=== PATIENT | female | born 1985 | race Caucasian/White ===

== ENCOUNTER 2016-10-24 06:58 | Inpatient (IN) | payer OTHER ==
[2016-10-25] MEDS ORDERED: IV START KIT ONE (07:33)
[2016-10-25] MEDS ORDERED: SODIUM CHLORIDE 0.9% FLUSH 20 ML ONE (07:34)
[2016-10-25] MEDS ORDERED: OXYTOCIN 10 UNITS/ML VIAL ONE (07:34)
[2016-10-25] MEDS ORDERED: LIDOCAINE 1% (PRES FREE) 30 ML VIAL ONE (07:34)
[2016-10-25] MEDS ORDERED: LACTATED RINGERS 1,000 ML ONE (07:34)
[2016-10-25] MEDS ORDERED: MINERAL OIL 25 ML BOT ONE (07:34)
[2016-10-25] MEDS ORDERED: LIDOCAINE Viscous 2% 15 ML UDCUP ONE (07:35)
[2016-10-25] MEDS ORDERED: OXYTOCIN IN LR 500 ML IV ONE ×2 (07:35→08:58)
[2016-10-25] MEDS ORDERED: PUMP TUBING ONE (07:35)
[2016-10-25 08:08] VITALS: BMI 39.0
[2016-10-25] MEDS ORDERED: MISOPROSTOL 25 MCG TABLET ONE (08:53)
[2016-10-25 09:18] LABS: HEMATOCRIT 34.8 % (37.0-47.0); HEMOGLOBIN 11.3 gm/l (12.0-16.0); MEAN CELL VOLUME 80.7 fl (81.0-99.0); MEAN CORPUSCULAR HEMOGLOBIN 26.2 pg (27.0-31.0); MEAN CORPUSCULAR HGB CONC 32.5 g/dl (33.0-37.0); RED CELL DISTRIBUTION WIDTH 14.4 % (11.5-14.5)
[2016-10-25] MEDS ORDERED: MISOPROSTOL 25 MCG TABLET VG SCH (10:00)
[2016-10-25] MEDS: MISOPROSTOL 25 MCG TABLET VG SCH ×2 (12:59→17:16)
[2016-10-25] MEDS: LACTATED RINGERS 1,000 ML IV PRN ×3 (17:02→23:00)
--- NOTE | 2016-10-25 17:21 | PCMAN ---
OB Admission Note - History : 2 Term: 0 Abortions (S&E): 1 Livin Gestational Age (weeks): 37 Admit Cervical Dilation:: 0 Admit Cervical Effacement (%):: 30 Admit Station:: -3 Admit Presentaton:: [facility] Membrane Status: Intact Contractions: No Summary of Course:: Pt with cholestasis of , now 37 wk. Admitted for induction with cytotec. - Labs Blood Type: A (+) positive
[2016-10-25] MEDS ORDERED: EPIDURAL PUMP SET ONE (23:19)
[2016-10-25] MEDS ORDERED: FENTANYL/ROPIVACAINE EPIDURAL 250 ML EP ONE (23:19)
[2016-10-25] MEDS ORDERED: EPIDURAL PROCEDURE TRAY ONE (23:32)
--- NOTE | 2016-10-25 23:40 | PDOC36 ---
Provider Note Note: cx 2/80/-2. Tracing with decreased variability and some lates. IUPC placed, tracing better. Contractions Q2min, 40mmHg. Will get epidural and observe.
[2016-10-26] MEDS: LACTATED RINGERS 1,000 ML IV PRN (00:01)
[2016-10-26] MEDS ORDERED: ROPIVACAINE 0.75% 20 ML AMP ONE (00:30)
[2016-10-26] MEDS ORDERED: ONDANSETRON 4 MG/2ML 2 ML VIAL ONE (00:31)
[2016-10-26] MEDS ORDERED: CITRIC ACID/SODIUM CITRATE 15 ML UDCUP PO ONE (00:35)
[2016-10-26] MEDS ORDERED: FAMOTIDINE 10 MG/ML 2ML VIAL ONE (00:36)
[2016-10-26] MEDS ORDERED: EPHEDRINE SULFATE 50 MG/ML 1ML VIAL IV PRN ×2 (00:37→01:00)
[2016-10-26] MEDS ORDERED: NALOXONE HCL 0.4 MG/ML VIAL IV PRN ×2 (00:37→01:00)
[2016-10-26] MEDS ORDERED: LACTATED RINGERS 1,000 ML IV SCH (00:37)
[2016-10-26] MEDS ORDERED: DIPHENHYDRAMINE HCL 50 MG/1 ML VIAL IV PRN ×2 (00:37→01:00)
[2016-10-26] MEDS ORDERED: METOCLOPRAMIDE HCL 5 MG/ML 2ML VIAL IV PRN (00:37)
[2016-10-26] MEDS ORDERED: SODIUM CHLORIDE 0.9% 500 ML IV PRN (00:37)
[2016-10-26] MEDS ORDERED: NALBUPHINE HCL 20 MG/ML AMP IV PRN (00:37)
[2016-10-26] MEDS ORDERED: ONDANSETRON 4 MG/2ML 2 ML VIAL IV PRN ×2 (00:37→01:00)
[2016-10-26] MEDS ORDERED: LACTATED RINGERS 500 ML IV PRN (00:37)
[2016-10-26] MEDS ORDERED: FENTANYL/ROPIVACAINE EPIDURAL 250 ML EP SCH (00:45)
[2016-10-26] MEDS ORDERED: HYDROMORPHONE HCL 2 MG/ML SYRINGE IV PRN (01:00)
[2016-10-26] MEDS ORDERED: OXYTOCIN 10 UNITS/ML VIAL ONE ×4 (01:15→04:28)
[2016-10-26] MEDS ORDERED: EPHEDRINE SULFATE UD SYR 25 MG 25 MG/5 ML SYRINGE IV ONE (01:22)
[2016-10-26] MEDS ORDERED: KETOROLAC TROMETHAMINE 30 MG/ML 1 ML VIAL ONE (01:32)
[2016-10-26] MEDS ORDERED: SODIUM CHLORIDE 0.9% 100 ML IV PRN (02:46)
[2016-10-26] MEDS ORDERED: PROMETHAZINE HCL 12.5 MG in SODIUM CHLORIDE 0.9% 50 ML IV PRN (02:46)
[2016-10-26] MEDS ORDERED: PROMETHAZINE HCL 6.25 MG in SODIUM CHLORIDE 0.9% 50 ML IV PRN (02:46)
[2016-10-26] MEDS ORDERED: LANOLIN 50 APPLIC/7G TUBE TP PRN (02:52)
[2016-10-26] MEDS ORDERED: LACTATED RINGERS/OXYTOCIN 30 334 ML IV ONE (02:52)
[2016-10-26] MEDS ORDERED: MEASLES,MUMPS&RUBELLA VACCINE 0.5 ML VIAL SUB-Q V ONE (02:52)
[2016-10-26] MEDS ORDERED: DIPHTH,PERTUSS(ACELL),TET VAC 0.5 ML VIAL IM V ONE (02:52)
[2016-10-26] MEDS: KETOROLAC TROMETHAMINE 30 MG/ML 1 ML VIAL IV SCH ×4 (07:53→21:06)
--- NOTE | 2016-10-26 08:57 | OP ---
Makeda Elias DATE OF PROCEDURE: 10/26/2016 PREOPERATIVE DIAGNOSIS: Intrauterine at 37 weeks with cholestasis of and distress. PROCEDURE PERFORMED: A primary low transverse section. SURGEON: Fransico Rincon M.D. COPYMAN: Dr. Hardin. DESCRIPTON OF PROCEDURE: The patient was taken to the operating room with epidural anesthesia in place. She was placed in the supine position and prepped and draped in the usual sterile fashion. A pfannenstiel skin incision was made with the scalpel through which a second scalpel was used to reach the fascia. The fascial incision was extended with Jett scissors. The peritoneum was entered with Metzenbaum's and extended. A Louie self retaining retractor was inserted. Peritoneum overlying the lower uterine segment was taken transversely with Metzenbaum's and the bladder pushed downwards. Uterus was entered by making a small anjelica in the lower uterine segment and extending it laterally with fingers. A live born female was delivered from the vertex presentation without complication. We waited 30 seconds before clamping the cord. The cord was then clamped and the baby handed to the nurses at the warmer. Placenta was manually removed and complete. The uterus was then closed in layers with the first layer being a running locking suture of 0 Vicryl, the second was an imbricating layer of 0 Vicryl. Hemostasis was checked and found to be good. Tubes and ovaries were normal. All retractors were removed. The anterior peritoneum was closed with a running suture of 2-0 Vicryl. The fascia was closed with two separate running sutures of 0 Vicryl. The skin was close with bryanna. The patient tolerated the procedure well and was taken to the recovery room in stable condition. All sponge, instrument, and needle counts were correct. Estimated blood loss 600 mL. JOB: [id number]
--- NOTE | 2016-10-26 09:08 | HP ---
Makeda Elias DATE: 10/26/2016 PREOPERATIVE DIAGNOSIS: Cholestasis of and distress. PROCEDURE PLANNED: A primary low transverse section. HISTORY OF PRESENT ILLNESS: The patient is a 31-year-old 2, para 0, AB 1 woman with an estimated date of confinement of 11/15/2016. The has been complicated by severe itching for the last month and blood tests have confirmed that she has cholestasis of . All her ultrasounds and NST's have been normal. Biophysical profile has been normal over the last couple of weeks, but she was admitted for induction of labor on 10/25. She was given Cytotec through the day because her cervix was closed. At 10:00 p.m. she had spontaneous rupture of membranes and was 2 cm, 70%, -1 station, however, the baby was losing variability intermittently and was then having intermittent late decelerations. An IUPC was placed which confirmed strong contractions and after an epidural was placed it was confirmed that she was still having definite late decelerations. With the head being high and the late decelerations I recommended a . PAST MEDICAL HISTORY: Has a history of cholestasis as described above. PAST SURGICAL HISTORY: None. ALLERGIES: LATEX AND OMEPRAZOLE. CURRENT MEDICATIONS: Vitamins. SOCIAL HISTORY: Patient lives with her and she is [place]er speaking. Does not smoke. Does not use alcohol. FAMILY HISTORY: Negative. REVIEW OF SYSTEMS: Patient denies any fever, chills, nausea, vomiting, diarrhea, constipation. PHYSICAL EXAMINATION: GENERAL: She is a healthy appearing woman. VITAL SIGNS: Stable. Afebrile. HEENT: Normal. LUNGS: Clear. HEART: Normal S1 and S2. ABDOMEN: Soft. Uterus is soft, term size. PELVIC: Cervix is 2 cm, 80%, and -2 station. Vertex presentation. IMPRESSION: Patient with cholestasis of and now distress and high presenting part. PLAN: Do a primary low transverse section. JOB: [id number]
--- NOTE | 2016-10-26 11:21 | PDOC44 ---
- Subjective Reports Pain Tolerable, Reports , Reports Lochia Light - Objective Temp Pulse Resp BP Pulse Ox 98.5 F 75 18 118/57 10/26/16 09:21 10/26/16 09:21 10/26/16 09:21 10/26/16 09:21 Current Medications Generic Name Dose Route Start Last Admin Trade Name Freq PRN Reason Stop Dose Admin Diphenhydramine HCl 25 - 50 mg 10/26/16 01:00 Benadryl IV 10/27/16 00:59 Q4H PRN Itching Docusate Sodium 100 mg 10/26/16 09:00 Colace PO BID CLAUDIO Emollient Ointment 0 applic 10/26/16 02:52 [id number] TP PRN PRN Ephedrine Sulfate 5 - 10 mg 10/26/16 01:00 Ephedrine Sulfate IV 10/27/16 00:59 Q5M PRN Hydromorphone HCl 0.5 - 2 mg 10/26/16 01:00 Dilaudid IV 10/27/16 00:59 Q1H PRN Pain Promethazine HCl 6.25 mg/ 50.25 mls @ 200 mls/hr 10/26/16 02:46 Sodium Chloride IV 10/27/16 01:00 Q4H PRN Nausea/Vomiting Promethazine HCl 12.5 mg/ 50.5 mls @ 200 mls/hr 10/26/16 02:46 Sodium Chloride IV 10/27/16 01:00 Q4H PRN Nausea/Vomiting Sodium Chloride 100 mls @ 400 mls/hr 10/26/16 02:46 Sodium Chloride 0.9% IV X1 PRN FLUSH Ketorolac Tromethamine 30 mg 10/26/16 03:00 10/26/16 07:53 Toradol IV 10/26/16 21:01 30 mg Q6H CLAUDIO Administration Ketorolac Tromethamine 30 mg 10/27/16 03:00 Toradol IV Q6H CLAUDIO Multivi/Iron Carb/Fe Sulf/FA/Prenat 1 tab 10/26/16 09:00 Plus PO DAILY CLAUDIO Naloxone HCl 0.2 - 0.4 mg 10/26/16 01:00 Narcan IV 10/27/16 00:59 Q5M PRN Ondansetron HCl 4 mg 10/26/16 01:00 Zofran IV 10/27/16 00:59 Q6H PRN Nausea/Vomiting Ondansetron HCl 4 mg 10/27/16 01:00 Zofran IV Q6H PRN Nausea/Vomiting Oxycodone/Acetaminophen 1 - 2 tab 10/26/16 02:52 Percocet 5/325 PO 10/30/16 02:51 Q4H PRN Pain Sodium Chloride 10 ml 10/26/16 09:00 Normal Saline 10ml Flush IV Q8HR CLAUDIO Sodium Chloride 10 ml 10/26/16 02:52 Normal Saline 10ml Flush IV PRN PRN - Physical Exam General: Afebrile Psych/Mental Status: Mood/Affect Appropriate Breast: Soft Fundus: Firm Abdomen: Normal Bowel Sounds Genitourinary: Normal Female Genitalia 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
[2016-10-26] MEDS: DOCUSATE SODIUM 100 MG CAPSULE PO SCH ×2 (19:22→21:05)
[2016-10-26] MEDS: PRENATAL VIT/FE FUMARATE/FA 1 TABLET PO SCH (19:23)
[2016-10-26] MEDS: MISOPROSTOL 25 MCG TABLET VG SCH (19:23)
[2016-10-27] MEDS ORDERED: ONDANSETRON 4 MG/2ML 2 ML VIAL IV PRN (01:00)
[2016-10-27] MEDS: KETOROLAC TROMETHAMINE 30 MG/ML 1 ML VIAL IV SCH ×2 (03:01→10:40)
--- NOTE | 2016-10-27 08:48 | PDOC44 ---
- Subjective Day: 2 Reports Pain Tolerable, Reports , Reports Lochia Light, Reports Tolerating Regular Diet - Objective Temp Pulse Resp BP Pulse Ox 98.1 F 90 18 122/68 10/27/16 07:20 10/27/16 07:20 10/27/16 07:20 10/27/16 07:20 Current Medications Generic Name Dose Route Start Last Admin Trade Name Freq PRN Reason Stop Dose Admin Docusate Sodium 100 mg 10/26/16 09:00 10/26/16 21:05 Colace PO 100 mg BID CLAUDIO Administration Emollient Ointment 0 applic 10/26/16 02:52 Xoy-P-[place] TP PRN PRN Sodium Chloride 100 mls @ 400 mls/hr 10/26/16 02:46 Sodium Chloride 0.9% IV X1 PRN FLUSH Ketorolac Tromethamine 30 mg 10/27/16 03:00 10/27/16 03:01 Toradol IV 30 mg Q6H CLAUDIO Administration Multivi/Iron Carb/Fe Sulf/FA/Prenat 1 tab 10/26/16 09:00 10/26/16 19:23 Plus PO Not Given DAILY CLAUDIO Ondansetron HCl 4 mg 10/27/16 01:00 Zofran IV Q6H PRN Nausea/Vomiting Oxycodone/Acetaminophen 1 - 2 tab 10/26/16 02:52 Percocet 5/325 PO 10/30/16 02:51 Q4H PRN Pain Sodium Chloride 10 ml 10/26/16 09:00 10/27/16 04:50 Normal Saline 10ml Flush IV Not Given Q8HR CLAUDIO Sodium Chloride 10 ml 10/26/16 02:52 10/26/16 21:06 Normal Saline 10ml Flush IV 10 ml PRN PRN Administration - Physical Exam General: Afebrile Psych/Mental Status: Mood/Affect Appropriate Breast: Soft Fundus: Firm Abdomen: Normal Bowel Sounds 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
[2016-10-27] MEDS: DOCUSATE SODIUM 100 MG CAPSULE PO SCH ×2 (10:40→22:08)
[2016-10-27] MEDS: PRENATAL VIT/FE FUMARATE/FA 1 TABLET PO SCH (10:40)
[2016-10-27] MEDS: IBUPROFEN 800 MG TABLET PO PRN ×2 (15:52→22:08)
[2016-10-28] MEDS: IBUPROFEN 800 MG TABLET PO PRN ×3 (04:53→18:53)
[2016-10-28] MEDS: OXYCODONE/ACETAMINOPHEN 5/325 MG TABLET PO PRN ×3 (05:09→13:07)
--- NOTE | 2016-10-28 08:52 | PDOC44 ---
- Subjective Reports Pain Tolerable, Reports , Reports Tolerating Regular Diet - Objective Temp Pulse Resp BP Pulse Ox 97.6 F 72 18 133/64 10/28/16 07:21 10/28/16 07:21 10/28/16 07:21 10/28/16 07:21 Current Medications Generic Name Dose Route Start Last Admin Trade Name Freq PRN Reason Stop Dose Admin Docusate Sodium 100 mg 10/26/16 09:00 10/27/16 22:08 Colace PO 100 mg BID CLAUDIO Administration Emollient Ointment 0 applic 10/26/16 02:52 [id number]-[id number] TP PRN PRN Sodium Chloride 100 mls @ 400 mls/hr 10/26/16 02:46 Sodium Chloride 0.9% IV X1 PRN FLUSH Ibuprofen 800 mg 10/27/16 16:40 10/28/16 04:53 Motrin PO 800 mg Q6H PRN Administration Pain Ketorolac Tromethamine 30 mg 10/27/16 03:00 10/27/16 10:40 Toradol IV 30 mg Q6H CLAUDIO Administration Multivi/Iron Carb/Fe Sulf/FA/Prenat 1 tab 10/26/16 09:00 10/27/16 10:40 Plus PO 1 tab DAILY CLAUDIO Administration Ondansetron HCl 4 mg 10/27/16 01:00 Zofran IV Q6H PRN Nausea/Vomiting Oxycodone/Acetaminophen 1 - 2 tab 10/26/16 02:52 10/28/16 05:09 Percocet 5/325 PO 10/30/16 02:51 0.5 tab Q4H PRN Administration Pain Sodium Chloride 10 ml 10/26/16 09:00 10/28/16 02:27 Normal Saline 10ml Flush IV 10 ml Q8HR CLAUDIO Administration Sodium Chloride 10 ml 10/26/16 02:52 10/26/16 21:06 Normal Saline 10ml Flush IV 10 ml PRN PRN Administration - Physical Exam General: Afebrile Psych/Mental Status: Mood/Affect Appropriate Breast: Soft Fundus: Firm Abdomen: Normal Bowel Sounds Genitourinary: Normal Female Genitalia 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
[2016-10-28] MEDS: DOCUSATE SODIUM 100 MG CAPSULE PO SCH ×3 (09:03→22:04)
[2016-10-28] MEDS: PRENATAL VIT/FE FUMARATE/FA 1 TABLET PO SCH (09:23)
[2016-10-28] MEDS: KETOROLAC TROMETHAMINE 30 MG/ML 1 ML VIAL IV SCH ×3 (18:49→22:05)
[2016-10-29] MEDS: IBUPROFEN 800 MG TABLET PO PRN ×2 (01:01→08:37)
[2016-10-29 07:45] VITALS: BP 139/89
[2016-10-29] MEDS: PRENATAL VIT/FE FUMARATE/FA 1 TABLET PO SCH (08:37)
[2016-10-29] MEDS: DOCUSATE SODIUM 100 MG CAPSULE PO SCH (08:38)
[2016-10-29] MEDS: OXYCODONE/ACETAMINOPHEN 5/325 MG TABLET PO PRN (11:00)
[2016-10-29] MEDS ORDERED: LACTATED RINGERS 1,000 ML ONE (11:07)
--- NOTE | 2016-11-01 10:55 | DS ---
Makeda Elias ADMITTING DIAGNOSIS: Cholestasis of admitted for induction of labor. PROCEDURE PERFORMED IN THE HOSPITAL: Primary low transverse section. HISTORY: The patient is 31-year-old 2, para 0, AB 1 woman with an estimated date of confinement of 11/15/2016. has been complicated by severe itching for the last month and blood test confirmed that she had cholestasis of . All of her ultrasound and NST's have been normal. Biophysical profile has been normal over the last couple of weeks, but she was admitted for induction of labor on 10/25 because of the cholestasis. She was given Cytotec through the day because her cervix was closed. At 10:00 p.m. she had spontaneous rupture of membranes and 2 cm, 70% effaced, and -1 station, however, the baby was losing variability intermittently and having intermittent late decelerations. IUPC was placed and confirmed strong contractions. After an epidural was placed it was confirmed that she was still having late decelerations. The head remained high and therefore recommended a . The patient underwent a primary low transverse section without complication. Postoperatively she did well. She remained afebrile, ambulating without difficulty and tolerating her diet. On the third postoperative day her bryanna were removed and Steri-Strips were placed. She was discharged home. She was given a prescription for Percocet and for Colace. She will return to see me in two weeks in the office. JOB: [id number]
== END 2016-10-29 13:10 | disposition home or self-care (01) | DRG 765 ==
LOC: EDSTATUS 06:58 → FBC 10-25 07:02
PROVIDERS: ADMIT Obstetrics & Gynecology; ATTEND Obstetrics & Gynecology
PROC: 3E0P7GC Introduction of Other Therapeutic Substance into Female Reproductive, Via Natural or Artificial Opening (ICD-10-PCS; 2016-10-25)
PROC: 10H07YZ Insertion of Other Device into Products of Conception, Via Natural or Artificial Opening (ICD-10-PCS; 2016-10-25)
PROC: 4A1H7FZ Monitoring of Products of Conception, Cardiac Rhythm, Via Natural or Artificial Opening (ICD-10-PCS; 2016-10-25)
PROC: 10D00Z1 Extraction of Products of Conception, Low, Open Approach (ICD-10-PCS; principal; 2016-10-26)
DX: O26.62 Liver and biliary tract disorders in childbirth (principal); K83.1 Obstruction of bile duct; O76 Abnormality in fetal heart rate and rhythm complicating labor and delivery; Z3A.37 37 weeks gestation of pregnancy; Z37.0 Single live birth

== ENCOUNTER 2016-10-31 15:07 | Outpatient (CLI) | payer OTHER | END 2016-10-31 15:08 | disposition home or self-care (01) | LOC: BABIESSH 15:07 | PROVIDERS: ATTEND Obstetrics & Gynecology | DX: Z39.1 Encounter for care and examination of lactating mother (principal) ==

== ENCOUNTER 2016-11-04 13:02 | Outpatient (CLI) | payer OTHER | END 2016-11-04 13:03 | disposition home or self-care (01) | LOC: BABIESSH 13:02 | PROVIDERS: ATTEND Obstetrics & Gynecology | DX: Z39.1 Encounter for care and examination of lactating mother (principal) ==

== ENCOUNTER 2016-11-11 14:16 | Outpatient (CLI) | payer OTHER | END 2016-11-11 14:17 | disposition home or self-care (01) | LOC: BABIESSH 14:16 | PROVIDERS: ATTEND Obstetrics & Gynecology | DX: Z39.1 Encounter for care and examination of lactating mother (principal) ==

== ENCOUNTER 2016-12-09 15:01 | Outpatient (CLI) | payer OTHER | END 2016-12-09 15:02 | disposition home or self-care (01) | LOC: BABIESSH 15:01 | PROVIDERS: ATTEND Obstetrics & Gynecology | DX: Z39.1 Encounter for care and examination of lactating mother (principal) ==